=== PATIENT | female | born 2005 | race Hispanic/Latino ===

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

== ENCOUNTER 2025-07-07 01:13 | Emergency (ER) | payer SELFPAY ==
[~2025-07-07] VITALS: Ht 160 cm; Wt 49.9 kg
--- NOTE | 2025-07-07 01:24 | EKG ---
[facility] Test Date: 2025-07-07 Test Time: 01:22:05 Pat Name: LARS CHERY Department: [facility] Patient ID: [id number] Room: Gender: F Medical Assistant Secretary: [id number] : 2005 Requested By: TOSHA BROWN Order Number: [id number] Reading MD: Darrel Nguyen Measurements Intervals [place] Rate: 148 P: 74 OK: 147 QRS: 31 QRSD: 87 T: -54 QT: 328 QTc: 516 Interpretive Statements Sinus tachycardia Left atrial enlargement Minimal ST depression, diffuse leads Prolonged QT interval No previous ECG available for comparison Electronically Signed On 07-07-2025 16:15:50 BUILDINGS PAINTER by Darrel Nguyen Please click the below link to view image of tracing.
[2025-07-07 01:39] LABS: IMMATURE GRANULOCYTE ABSOLUTE 0.03 K/uL (0-1); NUCLEATED RED BLOOD CELLS 0.0 % (0.0-0.19); PLATELET COUNT (AUTO) 268 K/uL (130-400); RED BLOOD CELL COUNT(AUTO) 4.30 MIL/uL (4.00-5.50); RED CELL DISTRIBUTION WIDTH 12.8 % (11.0-15.5); WHITE BLOOD COUNT (AUTO) 9.4 K/uL (4.8-10.8)
[2025-07-07 01:41] LABS: APPEARANCE,URINE CLEAR (CLEAR); GLUCOSE, URINE (UA) 200 mg/dL (NEGATIVE); LEUKOCYTE ESTERASE ,URINE NEGATIVE Leu/uL (NEGATIVE); NITRATE,URINE NEGATIVE (NEGATIVE); OCCULT BLOOD,URINE SMALL (NEGATIVE)
[2025-07-07 01:48] LABS: AMPHET/METH SCREEN,URINE NEGATIVE (NEGATIVE); BARBITURATE SCREEN, URINE NEGATIVE (NEGATIVE); CANNABINOID SCREEN,URINE NEGATIVE (NEGATIVE); COCAINE SCREEN,URINE NEGATIVE (NEGATIVE)
[2025-07-07 01:52] LABS: ADD UA MICROSCOPIC YES
[2025-07-07 01:53] LABS: RAPID GROUP A STREP negative (NEGATIVE)
[2025-07-07 01:54] LABS: SARS-CoV-2, RNA, NAAT NEGATIVE SARS CoV-2 (NEGATIVE)
[2025-07-07 01:55] LABS: SQUAMOUS EPITHELIAL CELL,UR RARE /HPF (0-2); YEAST,URINE BUDDING RARE /HPF (None Seen)
[2025-07-07 01:57] LABS: CREATININE 0.9 mg/dL (0.5-1.0); GLOMERULAR FILTR. RATE CALC 93.0 mL/min (>90); GLUCOSE,RANDOM 168.0 mg/dL (70-105); SODIUM SERUM 136.0 mmol/L (136-145); UREA NITROGEN, BLOOD 5.0 mg/dL (7-18)
[2025-07-07 01:59] LABS: INFLUENZA TYPE B Negative For Type B (NEGATIVE)
[2025-07-07 02:00] LABS: INFLUENZA TYPE A Positive For Type A (NEGATIVE)
[2025-07-07] MEDS: 0.9%NACL 1000ML 1,000 ML IV ONE ×2 (02:03→02:15)
[2025-07-07 02:11] LABS: ASPARTATE AMINOTRANSFERASE 14.0 U/L (10-37); CREATINE KINASE, TOTAL 69.0 U/L (21-232); TOTAL PROTEIN, SERUM 7.9 g/dL (6.0-8.3)
--- NOTE | 2025-07-07 02:18 | HMCIMG ---
EXAM: CR Chest, 1 View. CLINICAL HISTORY: SOB COMPARISON: None provided. FINDINGS: LUNGS: There is no mass, infiltrate, or acute pulmonary abnormality. PLEURAL SPACES: No pleural effusion or pneumothorax. MEDIASTINUM: The cardiomediastinal silhouette is within normal limits. BONES: No aggressively appearing osseous lesion. IMPRESSION: No acute cardiopulmonary pathology is evident. /Eloy
[2025-07-07 02:22] LABS: WBC MORPHOLOGY CONSISTENT W/DIFF
--- NOTE | 2025-07-07 02:44 | ERN ---
General Chief Complaint: Sepsis Stated Complaint: SOB, CHEST PAIN Time Seen by MD: 01:17 Time Seen by Midlevel: 01:17 Source: patient History of Present Illness Initial Comments The patient is a 20-year-old female presenting to the emergency department for evaluation of cough, shortness of breath, and chest tightness. Patient reports having a history of asthma but states this does not feel similar to previous asthma attacks. Allergies: Coded Allergies: No Known Allergies (Unverified Allergy, Unknown, 07/07/25) Past Medical History Past Medical History: No Pertinent History Past Surgical History: None Female( History) LMP: Jun 21, 2025 ROS Dictation CONSTITUTIONAL: Negative except for HPI HEAD/FACE: Negative except for HPI EENT: Negative except for HPI RESPIRATORY: Negative except for HPI GASTROINTESTINAL/ABDOMINAL: Negative except for HPI GENITOURINARY: Negative except for HPI MUSCULOSKELETAL: Negative except for HPI INTEGUMENTARY: Negative except for HPI NEUROLOGICAL/PSYCH: Negative except for HPI HEMATOLOGIC/LYMPHATIC: Negative except for HPI All Systems Negative, Except as noted above. 13 point review of systems assessed and all negative except for above. Physical Exam Physical Exam Dictation Vital Signs reviewed General Appearance: Alert, oriented x 3, no acute distress, well developed, nou rished. Head and Face: non-traumatic. Eyes: PERRL, pink conjunctivas, eyelid no trauma, anterior chamber with arcus senilis. Ears: Pinnas intact and no signs of trauma or erythema ear canals clear and no discharge TM no erythema Nose: No discharge, no bleeding. Oropharynx: Mouth normal, tongue pink, pharynx clear,no erythema, tonsils no exudates, no abscesses noted, mucous me mbrane moist Neck: Supple, non-tender, no thyromegaly, no masses, no JVD, no bruits Breast:Deferred Chest:No tenderness, no crepitus, no paradoxical movement, no retractions Lungs:Clear, well-ventilated, symmetric, no rales, no wheezing, no rhonchi, no stridor, good breath sounds bilaterally Heart: Tachycardic, regular rhythm, no murmur, no gallops Vascular: no peripheral edema, Abdomen: Soft, positive bowel sounds, nondistended, no guarding, nontender, no rebound, no masses no hepatomegaly, no splenomegaly, no Mendoza's sign, no hernias. Rectal: Deferred Genital: Deferred Neurological: Normal speech, motor function intact, sensory function intact Musculoskeletal: Neck nontender, full range of motion, back nontender, full range of motion, Extremities: nontender, full range of motion Skin: Color pink, dry, no turgor, no rash, no lacerations, no abrasions, no contusions. Lymphatic: Deferred Results Laboratory and Microbiology Lab and Micro Result Laboratory Tests Test 07/07/25 01:20 07/07/25 01:27 07/07/25 01:29 07/07/25 03:34 Influenza Type A Antigen Positive For Type A Influenza Type B Antigen Negative For Type B SARS-CoV-2, RNA, NAAT NEGATIVE SARS CoV-2 Group A Streptococcus Rapid negative (NEGATIVE) White Blood Count 9.4 K/uL (4.8-10.8) Red Blood Count 4.30 MIL/uL (4.00-5.50) Hemoglobin 13.5 g/dL (12.0-16.0) Hematocrit 38.7 % (36-48) Mean Corpuscular Volume 90.0 fL (79-99) Mean Corpuscular Hemoglobin 31.4 pg (27.0-33.0) Mean Corpuscular Hemoglobin Concent 34.9 g/dL (32.0-36.0) Red Cell Distribution Width 12.8 % (11.0-15.5) Platelet Count 268 K/uL (130-400) Mean Platelet Volume 10.8 fL (7.5-10.5) H Immature Granulocyte % (Auto) 0.3 % (0-1) Neutrophils (%) (Auto) 86.8 % (40.0-77.0) H Lymphocytes (%) (Auto) 5.2 % (21.0-51.0) L Monocytes (%) (Auto) 7.5 % (3.0-13.0) Eosinophils (%) (Auto) 0.0 % (0.0-8.0) Basophils (%) (Auto) 0.2 % (0.0-5.0) Neutrophils # (Auto) 8.1 K/uL (1.8-7.7) H Lymphocytes # (Auto) 0.5 K/uL (1.0-4.8) L Monocytes # (Auto) 0.7 K/uL (0.1-1.0) Eosinophils # (Auto) 0.00 K/uL (0.00-0.70) Basophils # (Auto) 0.02 K/uL (0.00-0.20) Absolute Immature Granulocyte (auto 0.03 K/uL (0-1) Nucleated Red Blood Cells 0.0 % (0.0-0.19) White Cell Morphology Comment CONSISTENT W/DIFF D-Dimer Quantitative (PE/DVT) 103 ng/mL (0-500) Sodium Level 136 mmol/L (136-145) Potassium Level 3.2 mmol/L (3.5-5.1) L Chloride Level 100 mmol/L (101-111) L Carbon Dioxide Level 20 mmol/L (21-32) L Blood Urea Nitrogen 5 mg/dL (7-18) L Creatinine 0.9 mg/dL (0.5-1.0) Glomerular Filtration Rate Calc 93 mL/min (>90) Random Glucose 168 mg/dL (70-105) H Lactic Acid Level 3.3 mmol/L (0.8-2.5) H 1.0 mmol/L (0.8-2.5) Total Calcium 9.1 mg/dL (8.5-10.1) Magnesium Level 1.70 mg/dL (1.80-2.40) L Total Bilirubin 0.5 mg/dL (0.2-1.0) Aspartate Amino Transf (AST/SGOT) 14 U/L (10-37) Alanine Aminotransferase (ALT/SGPT) 14 U/L (12-78) Alkaline Phosphatase 62 U/L (50-136) Total Creatine Kinase 69 U/L (21-232) Troponin I High Sensitivity 5 ng/L (4-50) Total Protein 7.9 g/dL (6.0-8.3) Albumin 4.3 g/dL (3.5-5.0) Procalcitonin < 0.05 ng/mL (0.05-0.5) L Thyroid Stimulating Hormone (TSH) 0.69 uIU/mL (0.36-3.74) Serum Test, Qualitative NEGATIVE (NEGATIVE) Urine Color LIGHT-YELLOW (YELLOW) Urine Appearance CLEAR (CLEAR) Urine pH 6.5 (5.0-8.0) Urine Specific [place] 1.011 (1.001-1.031) Urine Protein NEGATIVE mg/dL (NEGATIVE) Urine Glucose (UA) 200 mg/dL (NEGATIVE) H Urine Ketones 20 mg/dL (NEGATIVE) H Urine Occult Blood SMALL (NEGATIVE) H Urine Nitrate NEGATIVE (NEGATIVE) Urine Bilirubin NEGATIVE mg/dL (NEGATIVE) Urine Urobilinogen 0.2 mg/dL (0.2-1.0) Urine Leukocyte Esterase NEGATIVE John/uL Urine RBC 2-5 /HPF (0-1) H Urine WBC 0-1 /HPF (0-1) Urine Squamous Epithelial Cells RARE /HPF (0-2) Urine Bacteria None /HPF (None Seen) Urine Yeast RARE /HPF (None Seen) Urine Opiates Screen NEGATIVE (NEGATIVE) Urine Barbiturates Screen NEGATIVE (NEGATIVE) Urine Phencyclidine Screen NEGATIVE (NEGATIVE) Urine Amphetamines Screen NEGATIVE (NEGATIVE) Urine Benzodiazepines Screen NEGATIVE (NEGATIVE) Urine Cocaine Screen NEGATIVE (NEGATIVE) Urine Marijuana (THC) Screen NEGATIVE (NEGATIVE) Labs Reviewed?: Yes MDM MDM: The patient is a 20-year-old female presenting to the emergency department for evaluation of cough, shortness of breath, and chest tightness. Patient reports having a history of asthma but states this does not feel similar to previous asthma attacks. On physical examination patient was found to be febrile and tachycardic with a heart rate in the 140s. A sepsis alert was called overhead and a septic workup was initiated. CBC shows no leukocytosis, no anemia, no thrombocytopenia. Chemistries reveal slight hypokalemia with a potassium of 3.2. Lactic acid is elevated at 3.3. Patient was started on a total of 2 L of IV fluids. Procalcitonin in his neck. Cardiac enzyme is negative. EKG shows sinus tachycardia but no evidence of an acute coronary syndrome. test is negative. Urinalysis does not show any evidence of infection. Urine toxicology is negative. Respiratory swabs are remarkable for influenza A. Plan is to administered 2 L of IV fluids and repeat lactic acid. If lactic acid is trending down and is within normal ranges the patient will be discharged home. Differential diagnosis: Dehydration, sepsis, viral illness store, pulmonary embolism There are no social concerns with this patient. Prescription drug management Prescriptions will include: None Medical management and examination interpretation discussions were had by me with other qualified healthcare professionals as indicated for the patient's care. 3:00 a.m. patient is signed out to me at shift change mid-level. Her lactate level was 3.3 she received IV fluids and a repeat lactate is pending for me to follow up on . Nasopharyngeal swabs were positive for influenza A 3:20 a.m. Tamiflu 75 mg p.o. initiated 3:50 a.m. repeat lactic acid is 1.0. We will discharge patient on Tamiflu to complete the course as an outpatient ED Course Orders Procedure Category Date Status Time 12 Lead Ekg Tracing- EKG 07/07/25 Complete Technical 01:17 Covid Rna Naat LAB 07/07/25 Complete 01:17 Influenza Type A & B, LAB 07/07/25 Complete Rapid 01:17 Rapid (Group A Strep) LAB 07/07/25 Complete 01:17 Acetaminophen 500mg PHA 07/07/25 Complete Tab (Tylenol 500mg T 01:24 Cbc With Differential LAB 07/07/25 Complete 01:24 Comprehensive LAB 07/07/25 Complete Metabolic Panel 01:24 Creatine Kinase, Total LAB 07/07/25 Complete 01:24 Magnesium LAB 07/07/25 Complete 01:24 Testing, LAB 07/07/25 Complete Serum Hcg 01:24 Lactic Acid LAB 07/07/25 Complete 01:24 Blood Cult DANA 07/07/25 In Process 01:24 Procalcitonin LAB 07/07/25 Complete 01:24 Drug Screen Urine LAB 07/07/25 Complete 01:24 Urinalysis Profile LAB 07/07/25 Complete 01:24 Troponin I High LAB 07/07/25 Complete Sensitivity 01:24 Chest 1vw RAD 07/07/25 Resulted 01:24 0.9%Nacl 1000ml (Ns PHA 07/07/25 Complete 1000ml) 01:30 Acetaminophen 500mg PHA 07/07/25 Complete Tab (Tylenol 500mg T 01:30 Thyroid Stimulating LAB 07/07/25 Complete Hormone 01:24 D-Dimer LAB 07/07/25 Complete 01:27 0.9%Nacl 1000ml (Ns PHA 07/07/25 Complete 1000ml) 02:30 Potassium Bicarb/Cit PHA 07/07/25 Complete Ac 25meq (K-Lyte Ta 02:30 Ketorolac PHA 07/07/25 Complete Tromethamine 15mg/Ml 02:30 Lactic Acid LAB 07/07/25 Logged 03:00 Oseltamivir Phosphate PHA 07/07/25 Complete (Tamiflu) 03:30 Lactic Acid (Removed) LAB 07/07/25 Complete 03:34 Current Medications Medications (Trade) Dose Ordered Sig/[place] Route PRN Reason Start Time Stop Time Status Last Admin Dose Admin Acetaminophen (TYLenol 500MG TAB) 500 mg STK-MED ONCE .ROUTE 07/07/25 01:24 07/07/25 01:25 DC Acetaminophen (TYLenol 500MG TAB) 1,000 mg ONCE ONCE PO 07/07/25 01:30 07/07/25 01:31 DC 07/07/25 02:03 Ketorolac Tromethamine (toRADol) 15 mg ONCE ONCE IV 07/07/25 02:30 07/07/25 02:36 DC 07/07/25 02:56 Oseltamivir Phosphate (Tamiflu) 75 mg ONCE ONCE PO 07/07/25 03:30 07/07/25 03:31 DC 07/07/25 03:29 Potassium Bicarbonate (K-Lyte Tablet Eff 25 Meq Tablet.eff) 25 meq ONCE ONCE PO 07/07/25 02:30 07/07/25 02:36 DC 07/07/25 02:55 Sodium Chloride 1,000 ml @ 0 mls/hr ONCE ONCE IV 07/07/25 01:30 07/07/25 01:31 DC 07/07/25 02:03 Sodium Chloride 1,000 ml @ 0 mls/hr ONCE ONCE IV 07/07/25 02:30 07/07/25 02:31 DC 07/07/25 02:15 Vital Signs Date Time Temp Pulse Resp B/P (MAP) Pulse Ox O2 Delivery O2 Flow Rate FiO2 07/07/25 03:00 100.2 128 18 102/56 99 Room Air* 0 21 07/07/25 02:03 101.8 07/07/25 02:00 135 18 112/65 99 Room Air* 0 21 07/07/25 01:31 101.8 140 18 122/71 99 Room Air* 0 21 07/07/25 01:14 101.8 156 22 112/64 97 Room Air DX & DISP Disposition: Discharge Departure Impression: Primary Impression: Influenza A Additional Impressions: Hypokalemia, Volume depletion, Lactic acidosis Condition: Stable Scripts Oseltamivir Phosphate (Tamiflu) 75 Mg Cap 75 MG PO BID for 5 Days, #10 CAP 0 Refills Prov: TOSHA BROWN MD 07/07/25 Additional Instructions: You have tested positive for influenza A. Your blood work today showed a slightly low level of potassium. You were given oral potassium in the emergency department. Otherwise your blood work is stable. Continue with Tylenol and Motrin as needed for fever. Follow up with primary care doctor in 2-3 days for repeat evaluation. Referrals: SELF,REFERRAL (PCP) Time of Disposition: 02:37 I have reviewed the case, and I agree with, Diagnosis and Plan I performed the substantive portion of the visit. I have reviewed and personally made and approve the management plan that is documented in the note by myself or the ISABEL. I acknowledge for responsibility for the patient's management plan. LALO CHA Jul 07, 2025 02:44 TOSHA BROWN MD Jul 07, 2025 03:56
[2025-07-07 03:12] VITALS: TEMP 100.3
[2025-07-07] MEDS: OSELTAMIVIR PHOSPHATE 75 MG CAP PO ONE (03:29)
[2025-07-07] MEDS ORDERED: OSEL75 PO (03:53)
[2025-07-07 04:19] VITALS: BP 103/61; PULSE 108; RESP 18; TEMP 99; O2SAT 98
== END 2025-07-07 04:21 | disposition home or self-care (01) ==
LOC: EDH 01:13
DX: J10.1 Influenza due to other identified influenza virus with other respiratory manifestations (principal); E87.6 Hypokalemia; E86.9 Volume depletion, unspecified; E87.20 Acidosis, unspecified; J45.909 Unspecified asthma, uncomplicated; Z20.822 Contact with and (suspected) exposure to COVID-19
CPT/HCPCS: 99285; 96374; 71045; 87635; 96361; 84443; 82550; 83735; 84484; 80053; 80305; 84703; 85025; 85378; 87040 ×2; 87880; 87804 ×2; 83605 ×2; 36415; 93005; 84145; 81001; J1885; J7030